=== PATIENT | female | born 1970 | race Caucasian/White ===

== ENCOUNTER 2019-06-28 17:17 | Emergency (ER) | payer OTHER ==
[2019-06-28] MEDS ORDERED: Bacitracin Oint 1 GM U/D Packet TOP ONE (18:49)
[2019-06-28] MEDS ORDERED: Diphtheria,Pertussis(Acell),Tetanus Vaccine 0.5 ML SDV IM ONE (18:49)
--- NOTE | 2019-06-28 18:52 | EDM.PDOC ---
ED HPI GENERAL MEDICAL PROBLEM - General Chief Complaint: Laceration Stated Complaint: R EAR LACERATION Time Seen by Provider: 06/28/19 18:30 Source of Information: Reports: Patient History Limitations: Reports: No Limitations - History of Present Illness INITIAL COMMENTS - FREE TEXT/NARRATIVE: 49-year-old presents with concerns of laceration to the right ear. She was having her hair cut today when the stylist accidentally cut the top of her right ear. A small piece of the ear was shaved off. She did not bring this with her. There is significant amount of bleeding which has now subsided, minimal pain. She does not know when her last tetanus shot was. Right Ear Pain Score (Numeric/FACES): 4 - Related Data Allergies Allergy/AdvReac Type Severity Reaction Status Date / Time No Known Allergies Allergy Verified 06/28/19 17:42 Home Meds: Home Meds Tamoxifen [Nolvadex] 20 mg PO DAILY 06/28/19 [History] Past Medical History [employer] History: Reports: Oncologic (Cancer) History: Reports: Breast - Past Surgical History Oncologic Surgical History: Reports: Lumpectomy Social & Family History - Tobacco Use Smoking Status *Q: Never Smoker - Caffeine Use Caffeine Use: Reports: Coffee - Recreational Drug Use Recreational Drug Use: No ED ROS GENERAL - Review of Systems Review Of Systems: See Below Constitutional: Reports: No Symptoms HEENT: Reports: No Symptoms Respiratory: Reports: No Symptoms Cardiovascular: Reports: No Symptoms Endocrine: Reports: No Symptoms GI/Abdominal: Reports: No Symptoms : Reports: No Symptoms Musculoskeletal: Reports: No Symptoms Skin: Reports: Wound Neurological: Reports: No Symptoms Psychiatric: Reports: No Symptoms Hematologic/Lymphatic: Reports: No Symptoms Immunologic: Reports: No Symptoms ED EXAM, SKIN/RASH Exam: See Below Exam Limited By: No Limitations General Appearance: Alert, No Apparent Distress Ears: Other (abrasion top of the right ear. No bleeding) Nose: Normal Inspection Throat/Mouth: Normal Inspection Head: Atraumatic, Normocephalic Neck: Normal Inspection Respiratory/Chest: No Respiratory Distress Cardiovascular: Regular Rate, Rhythm GI/Abdominal: Soft, No Distention Back Exam: Normal Inspection Extremities: Normal Inspection Neurological: Alert, Oriented Psychiatric: Normal Affect, Normal Mood Skin: Warm, Dry Course - Vital Signs Last Recorded V/S: Last Vital Signs Temp 36.8 C 06/28/19 17:49 Pulse 75 06/28/19 17:49 Resp 16 06/28/19 17:49 BP 139/87 06/28/19 17:49 Pulse Ox 95 06/28/19 17:49 - Orders/Labs/Meds Orders: Active Orders 24 hr Category Date Time Status Vaccines to be Administered [RC] PER UNIT ROUTINE Care 06/28/19 18:49 Active Meds: Medications Discontinued Medications Generic Name Dose Route Start Last Admin Trade Name Obdulia PRN Reason Stop Dose Admin Bacitracin 1 dose 06/28/19 18:49 Bacitracin Oint 1 Gm TOP 06/28/19 18:50 ONETIME ONE Diphtheria/Tetanus/Acell Pertussis 0.5 ml 06/28/19 18:49 Adacel IM 06/28/19 18:50 .ONCE ONE - Re-Assessments/Exams Free Text/Narrative Re-Assessment/Exam: 49 yo with laceration to the right ear Bleeding controlled Noting to suture Discussed wound care, will apply bacitracin, updating tdap Discharged 06/28/19 18:57 Departure - Departure Time of Disposition: 18:50 Disposition: Home, Self-Care 01 Clinical Impression: Laceration - Discharge Information Instructions: Laceration Care, Adult, [id number] Referrals: Shayne Pa MD [Primary Care Provider] - Forms: ED Department Discharge Additional Instructions: Please apply the anti-bacterial ointment to the wound for the first 48 hrs See a physician for increased redness, discharge, or pain Sepsis Event Note - Evaluation Sepsis Screening Result: No Definite Risk - Focused Exam Vital Signs: Vital Signs Temp Pulse Resp BP Pulse Ox 06/28/19 17:49 36.8 C 75 16 139/87 95 06/28/19 17:31 36.8 C 75 16 139/87 95 Date Exam was Performed: 06/28/19 Time Exam was Performed: 18:55 - My Orders Last 24 Hours: My Active Orders 06/28/19 18:49 Vaccines to be Administered [RC] PER UNIT ROUTINE - Assessment/Plan Last 24 Hours: My Active Orders 06/28/19 18:49 Vaccines to be Administered [RC] PER UNIT ROUTINE
== END 2019-06-28 19:28 | disposition home or self-care (01) ==
LOC: JP.ED 17:17
DX: S01.311A Laceration without foreign body of right ear, initial encounter (principal); Z23 Encounter for immunization; W27.2XXA Contact with scissors, initial encounter
CPT/HCPCS: 90471; 90715; 99282-25